=== PATIENT | male | born 1955 | race Caucasian/White ===

== ENCOUNTER 2022-03-27 11:41 | Emergency (ER) | payer MEDICARE ==
[~2022-03-27] VITALS: Ht 180.3 cm; Wt 120.2 kg
--- NOTE | 2022-03-27 20:24 | EKG ---
[facility] [address] [place], [place] [address] Signed Sinus bradycardia Otherwise normal ECG No previous ECGs available Confirmed by LULÚ MORAN MD [id number] on 03/27/2022 8:23:55 PM Electronically Signed By: LULÚ MORAN MD 03/27/222023 PATIENT NAME: YAMIL FITZPATRICK Electrocardiogram DATE OF : 53 PHYSICIAN: LULÚ MORAN MD REPORT #: [id number] REPORT IS CONFIDENTIAL AND NOT TO BE RELEASED WITHOUT AUTHORIZATION
== END 2022-03-27 14:13 | disposition home or self-care (01) ==
LOC: ED 11:41
DX: R55 Syncope and collapse (principal); E86.0 Dehydration; I10 Essential (primary) hypertension
CPT/HCPCS: 36415; 71045; 80053; 81001; 83735; 84484; 85025; 93005; 93010; 99284-25